=== PATIENT | female | born 1990 ===

== ENCOUNTER 2025-02-07 13:00 | Inpatient (IN) | payer OTHER ==
[~2025-02-07] VITALS: Ht 157.5 cm; Wt 3.2 kg
[2025-02-07] MEDS ORDERED: LEVOTHYROXINE25 MCG PO (13:52)
[2025-02-07 14:09] LABS: URINE APPEARANCE Clear; URINE BILIRRUBIN Negative (NEGATIVE); URINE BLOOD Negative; URINE COLOR Yellow; URINE GLUCOSE Negative (NEGATIVE); URINE KETONE Negative (NEGATIVE); URINE LEUKOCYTE Negative; URINE NITRATE Negative; URINE PROTEIN Negative (NEGATIVE); URINE UROBILINOGEN 0.2 E.U./dl
[2025-02-07 14:10] LABS: URINE BACTERIA 62.4 uL (0.0-1933); URINE EPITHELIAL CELLS 4.5 uL (0.0-38.8); URINE WBC 2.4 uL (0.0-23.2)
[2025-02-07 14:11] LABS: URINE CAST 0.00 uL (0.0-1.40); URINE RBC 0.2 uL (0.0-20.8)
[2025-02-07 14:26] LABS: COVID-19 AG NEGATIVE (NEGATIVE)
[2025-02-07 14:27] LABS: BASO % 0.3 % (0.1-1.2); EOS # 0.09 (0.04-0.54); EOS % 0.8 % (0.7-7.0); LYMPH # 1.89 (1.18-3.74); LYMPH % 17.1 % (19.3-53.1); MEAN PLATELET VOLUME 10.70 fl (9.4-12.4); MONO # 0.82 (0.24-0.82); MONO % 7.4 % (4.7-12.5); NEUT # 8.13 (1.56-6.13); NEUT % 73.5 % (34.0-71.1); RED CELL DISTRIBUTION WIDTH 13.0 % (11.6-14.4)
[2025-02-07 14:34] LABS: INR < 0.93
[2025-02-07 15:23] LABS: ALT/SGPT 22.0 U/L (12-78); AST/SGOT 20.0 U/L (15-37); BILIRUBIN TOTAL 0.29 mg/dL (0.3-1.2); BUN CREA RATIO 11.0 (7.0-25.0); CREATININE SERUM 0.45 mg/dL (0.55-1.02); GFR 161.47; GLOBULINA 3.4 G/DL (2.4-3.5); GLUCOSE FASTING 70.0 mg/dL (65-100); OSMOLALITY SERUM 273.0 MOSM/KG (275-295)
[2025-02-11 02:25] VITALS: BP 124/71; O2SAT 100
[2025-02-11] MEDS ORDERED: CITRIC ACID/SODIUM CITRATE 30 ML BLIST.PACK PO SCH (02:45)
[2025-02-11] MEDS ORDERED: CEFAZOLIN SODIUM 1,000 MG VIAL IV SCH (02:45)
[2025-02-11] MEDS ORDERED: RINGERS SOLUTION,LACTATED 1,000 ML IV SCH (02:45)
[2025-02-11] MEDS ORDERED: MORPHINE SULFATE 4 MG/ML CARTRIDGE IV PRN ×2 (02:45→10:30)
[2025-02-11 03:25] LABS: BASO % 0.3 % (0.1-1.2); EOS # 0.07 (0.04-0.54); EOS % 0.7 % (0.7-7.0); LYMPH # 2.02 (1.18-3.74); LYMPH % 20.5 % (19.3-53.1); MEAN PLATELET VOLUME 10.90 fl (9.4-12.4); MONO # 0.95 (0.24-0.82); MONO % 9.7 % (4.7-12.5); NEUT # 6.72 (1.56-6.13); NEUT % 68.3 % (34.0-71.1); RED CELL DISTRIBUTION WIDTH 12.5 % (11.6-14.4)
[2025-02-11] MEDS ORDERED: PRENATAL TABLE1 EAC1 PO (03:25)
[2025-02-11] MEDS ORDERED: TIROSINT50 MCG PO (03:25)
[2025-02-11 03:56] LABS: INR < 0.93
[2025-02-11 03:58] LABS: ALT/SGPT 20.0 U/L (12-78); AST/SGOT 19.0 U/L (15-37); BILIRUBIN TOTAL 0.27 mg/dL (0.3-1.2); BUN CREA RATIO 10.0 (7.0-25.0); CREATININE SERUM 0.48 mg/dL (0.55-1.02); GFR 149.88; GLOBULINA 3.3 G/DL (2.4-3.5); GLUCOSE FASTING 74.0 mg/dL (65-100); OSMOLALITY SERUM 273.0 MOSM/KG (275-295)
[2025-02-11 07:15] VITALS: BP 118/75
[2025-02-11] MEDS ORDERED: ERYTHROMYCIN BASE OPHT 1GM EACH TUBE OP ONE (09:00)
[2025-02-11] MEDS ORDERED: OXYTOCIN 10 UNITS/ML VIAL IV ONE (09:00)
[2025-02-11] MEDS ORDERED: OXYTOCIN 1,000 ML IV SCH (10:30)
[2025-02-11] MEDS ORDERED: MORPHINE SULFATE 4 MG/ML VIAL IV ONE ×3 (10:45→11:45)
[2025-02-11 12:25] VITALS: BP 118/74
[2025-02-11] MEDS ORDERED: NAPROXEN 500 MG TABLET PO SCH (18:17)
[2025-02-11 18:26] VITALS: BP 133/80
[2025-02-11 21:15] VITALS: BP 144/82; O2SAT 95
[2025-02-12 01:45] VITALS: BP 119/71
[2025-02-12 08:45] VITALS: BP 120/75
[2025-02-12 09:22] LABS: BASO % 0.2 % (0.1-1.2); EOS # 0.01 (0.04-0.54); EOS % 0.1 % (0.7-7.0); LYMPH # 1.53 (1.18-3.74); LYMPH % 9.1 % (19.3-53.1); MEAN PLATELET VOLUME 10.00 fl (9.4-12.4); MONO # 1.08 (0.24-0.82); MONO % 6.4 % (4.7-12.5); NEUT # 14.15 (1.56-6.13); NEUT % 83.7 % (34.0-71.1); RED CELL DISTRIBUTION WIDTH 12.5 % (11.6-14.4)
[2025-02-12 16:00] VITALS: BP 109/69
[2025-02-13 00:33] VITALS: BP 102/65
[2025-02-13] MEDS ORDERED: OxyCODONE HCL 5 MG TABLET (ROXICODONE) PO PRN (06:00)
[2025-02-13 08:00] VITALS: BP 117/76
[2025-02-13 17:15] VITALS: BP 129/76
[2025-02-13 21:25] VITALS: BP 109/71
[2025-02-14 00:10] VITALS: BP 100/63
[2025-02-14 08:38] VITALS: BP 107/70
== END 2025-02-14 12:51 | disposition home or self-care (01) | DRG 788 ==
LOC: LDR 02-11 02:42 → OB/GYN 02-11 10:19 → LDR 02-16 13:00
PROVIDERS: Obstetrics & Gynecology; ADMIT Obstetrics & Gynecology Gynecology; ATTEND Obstetrics & Gynecology Gynecology
PROC: 4A1HXCZ Monitoring of Products of Conception, Cardiac Rate, External Approach (ICD-10-PCS; 2025-02-11)
PROC: 10D00Z1 Extraction of Products of Conception, Low, Open Approach (ICD-10-PCS; principal; 2025-02-11 09:00)
DX: O82 Encounter for cesarean delivery without indication (principal); Z3A.39 39 weeks gestation of pregnancy; Z37.0 Single live birth

== ENCOUNTER 2025-02-10 07:26 | Outpatient (CLI) | payer OTHER ==
[~2025-02-10 07:26] MED LIST: LEVOTHYROXINE25 MCG PO
[2025-02-11] MEDS ORDERED: PRENATAL TABLE1 EAC1 PO (03:25)
[2025-02-11] MEDS ORDERED: TIROSINT50 MCG PO (03:25)
== END 2025-02-10 08:19 | disposition home or self-care (01) ==
LOC: NST 07:26
PROVIDERS: ATTEND Obstetrics & Gynecology Gynecology
DX: Z34.83 Encounter for supervision of other normal pregnancy, third trimester (principal)